=== PATIENT | female | born 1985 | race Hispanic/Latino ===

== ENCOUNTER 2024-04-25 10:01 | Emergency (ER) | payer OTHER ==
[~2024-04-25] VITALS: Ht 149.9 cm; Wt 74.8 kg
[2024-04-25 10:34] VITALS: PULSE 101; RESP 18; TEMP 99.2; O2SAT 98
== END 2024-04-25 10:52 | disposition home or self-care (01) ==
LOC: ER 10:50
DX: R50.9 Fever, unspecified (principal); B34.9 Viral infection, unspecified; R05.9 Cough, unspecified; Z98.84 Bariatric surgery status
CPT/HCPCS: 99282